=== PATIENT | male | born 1935 | race Two or more races ===

== ENCOUNTER → 2018-08-18 | Outpatient (CLI) | payer OTHER ==
[~2018-08-18] MED LIST: AMARYL; ATACAND4 MG; AVANDARYL 4 MG-1 TA1; CARDIAMIN MULT1 EACH; DILTIAZEM ER300 M1; LASIX40 MG; METFORMIN HCL500 MG; METOPROLOL SUC100 MG
== END | disposition home or self-care (01) ==
LOC: RAD 501 11:21
DX: H25.011 Cortical age-related cataract, right eye (principal); Z01.810 Encounter for preprocedural cardiovascular examination; Z98.41 Cataract extraction status, right eye